=== PATIENT | male | born 1950 | race Two or more races ===

== ENCOUNTER → 2017-02-26 | Day surgery (SDC) | payer MEDICARE, OTHER ==
[~2017-02-26] VITALS: Ht 185.4 cm; Wt 81.4 kg
[~2017-02-26] MED LIST: ASPI-664 PO; BENA10TA48 PO; CARV25TA79 PO; FENTAnyl 50 MCG/ML VIAL ONE; MELO-109 PO; MIDAZOLAM 1 MG/ML 2 ML INJ ONE; NIAC50TA3 PO; PHENYLephrine (100 MCG/ML) 5ML SYG ONE
[2017-02-26 06:50] VITALS: Ht 185.4 cm; Wt 81.4 kg
[2017-02-26 07:19] VITALS: BP 135/75; PULSE 62; RESP 18
[2017-02-26 09:00] VITALS: BP 122/60; PULSE 63; RESP 24
--- NOTE | 2017-02-26 10:57 | GILP ---
DATE OF PROCEDURE: 02/26/2017 NAME OF PROCEDURES: Colonoscopy and biopsy. SURGEON: Alem Patel MD PREOPERATIVE DIAGNOSIS: Screening colonoscopy. POSTOPERATIVE DIAGNOSES: 1. Colonoscopy all the way to the cecum. 2. Small cecal polyp was removed using the biopsy forceps. 3. Internal hemorrhoids. 4. Poor prep making the exam very suboptimal. INDICATION FOR THE PROCEDURE: Mr. Evelyn Laguna is a 67-year-old male patient who was scheduled for screening colonoscopy. The procedure and possible complications were well explained to the patient, he understood and conse nted to the procedure. DESCRIPTION OF PROCEDURE: Under the influence of fentanyl and Versed, the colonoscope was carefully introduced in the rectum and under direct vision, it was advanced all the way to the cecum. FINDINGS: The patient had poor prep, making the exam very suboptimal. The patient was noted to hav e a small cecal polyp and it was removed using the biopsy forceps. He had internal hemorrhoids. He tolerated the procedure very well and there was no complication from the procedure. At the end o f the procedure, he was awake with stable vital signs and he was discharged home to the care of his family. IMPRESSION: 1. Colonoscopy all the way to the cecum. 2. Poor prep, making the exam very suboptimal. 3. Small cecal polyp was removed using the biopsy forceps. 4. Internal hemorrhoids. PLAN: 1. Await histopathology report. 2. The patient will need repeat colonoscopy with better preparation in 1 year. Dictated By: ALEM LAINEZ/MARA Conf#: [id number] DID#: [id number] CC: ALEM PATEL MD;*End*
== END | disposition home or self-care (01) ==
LOC: GIL 06:05
PROVIDERS: ATTEND Internal Medicine Gastroenterology
DX: Z12.11 Encounter for screening for malignant neoplasm of colon (principal); D12.0 Benign neoplasm of cecum; K64.8 Other hemorrhoids; I10 Essential (primary) hypertension
CPT/HCPCS: 45380; 88305; J2250; J3010; J2370